=== PATIENT | female | born 1965 | race Caucasian/White ===

== ENCOUNTER 2019-07-21 13:41 | Observation (INO) | payer BC, OTHER ==
[2019-07-21] VITALS (9 sets, daily range): BP systolic 130–164; BP diastolic 70–87
[~2019-07-21] VITALS: Ht 162.5 cm; Wt 90.2 kg
[2019-07-21] MEDS ORDERED: ASPIRIN 81 MG CHEW (CHILDREN'S ASA) PO ONE (14:00)
[2019-07-21 14:20] LABS: BASOPHILS % (AUTO) 0 % (0-10); EOSINOPHILS % (AUTO) 0 % (0-10); HEMATOCRIT 39 % (35-52); HEMOGLOBIN 12.9 G/DL (11.5-16.0); LYMPHOCYTES % (AUTO) 10 % (12-44); MEAN CORPUSCULAR HEMOGLOBIN 30 PG (25-34); MEAN CORPUSCULAR HGB CONC 33 G/DL (32-36); MEAN CORPUSCULAR VOLUME 91 FL (80-99); MEAN PLATELET VOLUME 10.2 FL (7.4-10.4); MONOCYTES # (AUTO) 0.5 X 10^3 (0.0-1.0); MONOCYTES % (AUTO) 5 % (0-12); NEUTROPHILS # (AUTO) 8.5 X 10^3 (1.8-7.8); NEUTROPHILS % (AUTO) 85 % (42-75); PLATELET COUNT 234 10^3/uL (130-400); RED CELL DISTRIBUTION WIDTH 14.6 % (10.0-14.5)
--- NOTE | 2019-07-21 14:32 | Diagnostic Imaging Report ---
INDICATION: Chest pain. FINDINGS: The heart size is upper limits. There is no failure pattern or focal consolidation. No effusion or pneumothorax. IMPRESSION: No acute-appearing abnormality. Dictated by: Dictated on workstation # [id number]
[2019-07-21 14:42] LABS: INR 0.9 (0.8-1.4); PROTHROMBIN TIME PATIENT 12.8 SEC (12.2-14.7)
[2019-07-21 14:50] LABS: ALBUMIN 3.9 GM/DL (3.2-4.5); BILIRUBIN,TOTAL 0.7 MG/DL (0.1-1.0); CALCIUM 9.4 MG/DL (8.5-10.1); CREATININE SERUM 1.39 MG/DL (0.60-1.30); MAGNESIUM 1.6 MG/DL (1.6-2.4); POTASSIUM 3.8 MMOL/L (3.6-5.0); TOTAL PROTEIN 6.4 GM/DL (6.4-8.2)
--- NOTE | 2019-07-21 15:51 | Consultation-Cardiology ---
HPI-Cardiology Cardiology Consultation Date of Consultation 07/21/19 Date of Admission Time Seen by Provider: 15:47 Indication: Chest pain HPI 53-year-old lady with history of coronary artery disease multiple intervention in the past, hypertension hyperlipidemia and chronic kidney disease, history of kidney transplant. Was in her usual state of health until recently when she st arted to have recurrent episodes of chest pain described it as dull in nature in the retrosternal area and left side of her chest radiating up to her neck and arms. Seen in [facility] emergency room yesterday and she was planned to have a cardiac catheterization in [facility], patient expressed that she was told due to insurance coverage she cannot have it done in [place], she contacted my office this morning with a new episode of chest pain this morning again radiating to her neck and she was instructed to come to the emergency room. At this time she denied any active pain. No palpitation. No syncope. Home Medications & Allergies Allergies: Coded Allergies: NSAIDS (Non-Steroidal Anti-Inflamma (Unverified Allergy, Unknown, 07/21/19) hydromorphone (Verified Allergy, Unknown, 07/21/19) Home Medication List Reviewed: Yes AHH-Gwcaut-Xjbpei Hx Patient Social History Marital Status: Employed/Student: retired Recent Foreign Travel: No Recent Infectious Disease Expo: No Recent Hopitalizations: Yes Past Medical History Discussed below Family Medical History Family Medical Hx Noncontributory Review of Systems-General Review of Systems Constitutional: no symptoms reported, see HPI EENTM: see HPI, no symptoms reported Respiratory: see HPI; No cough, No dyspnea on exertion, No hemoptysis, No or thopnea, No phlegm, No short of breath, No stridor, No wheezing, No other Cardiovascular: see HPI, chest pain; No edema, No Hx of Intervention, No palpitations, No syncope, No vascular heart diseas, No other Gastrointestinal: no symptoms reported, see HPI Genitourinary: no symptoms reported, see HPI Musculoskeletal: no symptoms reported, see HPI Skin: no symptoms reported, see HPI Psychiatric/Neurological: No Symptoms Reported, See HPI Reviewed Test Results Reviewed Test Results Lab Laboratory Tests Test 07/21/19 14:13 Range/Units White Blood Count 10.0 4.3-11.0 10^3/uL Red Blood Count 4.31 L 4.35-5.85 10^6/uL Hemoglobin 12.9 11.5-16.0 G/DL Hematocrit 39 35-52 % Mean Corpuscular Volume 91 80-99 FL Mean Corpuscular Hemoglobin 30 25-34 PG Mean Corpuscular Hemoglobin Concent 33 32-36 G/DL Red Cell Distribution Width 14.6 H 10.0-14.5 % Platelet Count 234 130-400 10^3/uL Mean Platelet Volume 10.2 7.4-10.4 FL Neutrophils (%) (Auto) 85 H 42-75 % Lymphocytes (%) (Auto) 10 L 12-44 % Monocytes (%) (Auto) 5 0-12 % Eosinophils (%) (Auto) 0 0-10 % Basophils (%) (Auto) 0 0-10 % Neutrophils # (Auto) 8.5 H 1.8-7.8 X 10^3 Lymphocytes # (Auto) 1.0 1.0-4.0 X 10^3 Monocytes # (Auto) 0.5 0.0-1.0 X 10^3 Eosinophils # (Auto) 0.0 0.0-0.3 10^3/uL Basophils # (Auto) 0.0 0.0-0.1 10^3/uL Prothrombin Time 12.8 12.2-14.7 SEC INR Comment 0.9 0.8-1.4 Activated Partial Thromboplast Time 29 24-35 SEC Sodium Level 140 135-145 MMOL/L Potassium Level 3.8 3.6-5.0 MMOL/L Chloride Level 106 98-107 MMOL/L Carbon Dioxide Level 24 21-32 MMOL/L Anion Gap 10 5-14 MMOL/L Blood Urea Nitrogen 15 7-18 MG/DL Creatinine 1.39 H 0.60-1.30 MG/DL Estimat Glomerular Filtration Rate 40 BUN/Creatinine Ratio 11 Glucose Level 189 H 70-105 MG/DL Calcium Level 9.4 8.5-10.1 MG/DL Corrected Calcium 9.5 8.5-10.1 MG/DL Magnesium Level 1.6 1.6-2.4 MG/DL Total Bilirubin 0.7 0.1-1.0 MG/DL Aspartate Amino Transf (AST/SGOT) 16 5-34 U/L Alanine Aminotransferase (ALT/SGPT) 24 0-55 U/L Alkaline Phosphatase 104 40-136 U/L Myoglobin 96.5 H 10.0-92.0 NG/ML Troponin I < 0.028 <0.028 NG/ML Total Protein 6.4 6.4-8.2 GM/DL Albumin 3.9 3.2-4.5 GM/DL Physical Exam Physical Exam Vital Signs Vital Signs - First Documented Capillary Refill : Less Than 3 Seconds Height, Weight, BMI Height: '" Weight: lbs. oz. kg; 32.00 BMI Method: General Appearance: No Apparent Distress, WD/WN Eyes: Bilateral Eye Normal Inspection, Bilateral Eye PERRL, Bilateral Eye EOMI HEENT: PERRL/EOMI, TMs Normal, Normal ENT Inspection, Pharynx Normal, Moist Mucous Membranes Neck: Full Range of Motion, Normal Inspection, Non Tender, Supple, Carotid Bruit Respiratory: Chest Non Tender, Normal Breath Sounds, No Accessory Muscle Use, No Respiratory Distress Cardiovascular: Regular Rate, Rhythm, No Edema, No Gallop, No JVD, No Murmur, Normal Peripheral Pulses Gastrointestinal: Normal Bowel Sounds, No Organomegaly, No Pulsatile Mass, Non Tender, Soft Back: Normal Inspection, No CVA Tenderness, No Vertebral Tenderness Extremity: Normal Capillary Refill, Normal Inspection, Normal Range of Motion, Non Tender, No Calf Tenderness, No Pedal Edema Neurologic/Psychiatric: Alert, Oriented x3, No Motor/Sensory Deficits, Normal Mood/Affect Skin: Normal Color, Warm/Dry Lymphatic: No Adenopathy A/P-Cardiology Admission Diagnosis Unstable angina Coronary artery disease Chronic kidney disease Hypertension Assessment/Plan Unstable angina, accelerating angina, having multiple episodes of chest pain, EKG showed T-wave inversion in the anterolateral leads. Cardiac enzymes are negative. I am planning to proceed with cardiac catheterization possible PTCA. Coronary artery disease multiple interventions in the past, reporting history of 3 stents last stent was placed in 2017. Planning to repeat cardiac catheterization. Chronic kidney disease, history of kidney transplant done in 2004, mild renal insufficiency at this time. Starting IV fluid and monitor renal function. Hypertension, restart home medication and monitor blood pressure Hyperlipidemia, restart medication monitor lipids Diabetes mellitus, history of pancreatic insufficiency. GERD, managed by primary care physician History of bipolar disorder. Clinical Quality Measures AMI/AHF: ASA po Prior to arrival: NATHAN Wilcox MD Jul 21, 2019 15:51
--- NOTE | 2019-07-21 15:52 | ED Chest Pain ---
General Chief Complaint: Cardiac/General Problems Stated Complaint: CHEST PAIN Nursing Triage Note: PT STATES CHEST PAIN THIS MORNING AT 1000. CP WENT AWAY WITHOUT INTERVENTION. PATIENT STATED SHE WAS SUPPOSE TO HAVE A HEART CATH TODAY, BUT INS. WOULD NOT PAY FOR IT. PT STATES CONTACTED DR LOYD OFFICE AND WAS SENT HERE Nursing Sepsis Screen: No Definite Risk Source: patient Exam Limitations: no limitations History of Present Illness Date Seen by Provider: Jul 21, 2019 Time Seen by Provider: 13:57 Initial Comments This 53-year-old woman with known coronary artery disease and prior stenting presents to the emergency room with complaints of chest pain yesterday and then again this morning. Yesterday she experienced chest pain accompanied by nausea and sweating. She presented to the emergency room at [facility] in [place]. Workup was performed. The ER physician reportedly wanted to transfer the patient to Dr. Porter at [place] for heart catheter. However, patient states her insurance would not allow transfer to [place]. Patient ultimately was discharged home with instructions to follow-up with Dr. Hernandez in [place]. Patient attempted to present to the clinic today, but Dr. Hernandez was not in the clinic today. She was therefore referred to the emergency room. Patient reports yesterday her pain was alleviated with 2 nitroglycerin. She did not require nitroglycerin today. She did take her usual baby aspirin this morning. Patient has a complicated health history. She wears an insulin pump for treatment of her diabetes. She also has history of renal and pancreatic transplants. Allergies and Home Medications Allergies Coded Allergies: NSAIDS (Non-Steroidal Anti-Inflamma (Unverified Allergy, Unknown, 07/21/19) hydromorphone (Verified Allergy, Unknown, 07/21/19) Patient Home Medication List Home Medication List Reviewed: Yes Review of Systems Review of Systems Constitutional: see HPI EENTM: No Symptoms Reported Respiratory: No Symptoms Reported Cardiovascular: See HPI Gastrointestinal: See HPI Genitourinary: No Symptoms Reported Musculoskeletal: no symptoms reported Skin: no symptoms reported Psychiatric/Neurological: No Symptoms Reported Endocrine: No Symptoms Reported Hematologic/Lymphatic: No Symptoms Reported Past Nazaokf-Xpfssn-Hdmbwm Hx Past Med/Social Hx: Reviewed Nursing Past Med/Soc Hx Patient Social History Smoking Status: Former Smoker Recent Foreign Travel: No Contact w/Someone Who Travel: No Recent Infectious Disease Expo: No Recent Hopitalizations: Yes Past Medical History Surgeries: Yes (PANCREATIC TRANSPLANT) Coronary Stent, Kidney Transplant Respiratory: No Cardiac: Yes Angina, Heart Attack, Hypertension Neurological: No : No Genitourinary: No Gastrointestinal: No Musculoskeletal: No Endocrine: Yes Diabetes, Insulin dep (insulin pump) Psychosocial: No Integumentary: No Physical Exam Vital Signs Vital Signs - First Documented Capillary Refill : Less Than 3 Seconds Height, Weight, BMI Height: '" Weight: lbs. oz. kg; 32.00 BMI Method: General Appearance: No Apparent Distress, WD/WN HEENT: PERRL/EOMI, Normal ENT Inspection Neck: Normal Inspection Respiratory: Chest Non Tender, Lungs Clear, Normal Breath Sounds, No Accessory Muscle Use, No Respiratory Distress Cardiovascular: Regular Rate, Rhythm, No Edema, No Murmur, Normal Peripheral Pulses Gastrointestinal: Normal Bowel Sounds, Non Tender, Soft Extremity: Normal Inspection, Non Tender, No Calf Tenderness, No Pedal Edema Neurologic/Psychiatric: Alert, Oriented x3, No Motor/Sensory Deficits, Normal Mood/Affect, control panel tester II-XII Norm as Tested Skin: Normal Color, Warm/Dry Progress/Results/Core Measures Results/Orders Lab Results Laboratory Tests Test 07/21/19 14:13 Range/Units White Blood Count 10.0 4.3-11.0 10^3/uL Red Blood Count 4.31 L 4.35-5.85 10^6/uL Hemoglobin 12.9 11.5-16.0 G/DL Hematocrit 39 35-52 % Mean Corpuscular Volume 91 80-99 FL Mean Corpuscular Hemoglobin 30 25-34 PG Mean Corpuscular Hemoglobin Concent 33 32-36 G/DL Red Cell Distribution Width 14.6 H 10.0-14.5 % Platelet Count 234 130-400 10^3/uL Mean Platelet Volume 10.2 7.4-10.4 FL Neutrophils (%) (Auto) 85 H 42-75 % Lymphocytes (%) (Auto) 10 L 12-44 % Monocytes (%) (Auto) 5 0-12 % Eosinophils (%) (Auto) 0 0-10 % Basophils (%) (Auto) 0 0-10 % Neutrophils # (Auto) 8.5 H 1.8-7.8 X 10^3 Lymphocytes # (Auto) 1.0 1.0-4.0 X 10^3 Monocytes # (Auto) 0.5 0.0-1.0 X 10^3 Eosinophils # (Auto) 0.0 0.0-0.3 10^3/uL Basophils # (Auto) 0.0 0.0-0.1 10^3/uL Prothrombin Time 12.8 12.2-14.7 SEC INR Comment 0.9 0.8-1.4 Activated Partial Thromboplast Time 29 24-35 SEC Sodium Level 140 135-145 MMOL/L Potassium Level 3.8 3.6-5.0 MMOL/L Chloride Level 106 98-107 MMOL/L Carbon Dioxide Level 24 21-32 MMOL/L Anion Gap 10 5-14 MMOL/L Blood Urea Nitrogen 15 7-18 MG/DL Creatinine 1.39 H 0.60-1.30 MG/DL Estimat Glomerular Filtration Rate 40 BUN/Creatinine Ratio 11 Glucose Level 189 H 70-105 MG/DL Calcium Level 9.4 8.5-10.1 MG/DL Corrected Calcium 9.5 8.5-10.1 MG/DL Magnesium Level 1.6 1.6-2.4 MG/DL Total Bilirubin 0.7 0.1-1.0 MG/DL Aspartate Amino Transf (AST/SGOT) 16 5-34 U/L Alanine Aminotransferase (ALT/SGPT) 24 0-55 U/L Alkaline Phosphatase 104 40-136 U/L Myoglobin 96.5 H 10.0-92.0 NG/ML Troponin I < 0.028 <0.028 NG/ML Total Protein 6.4 6.4-8.2 GM/DL Albumin 3.9 3.2-4.5 GM/DL My Orders Orders - AIRAM LAROSE MD Cbc With Automated Diff (07/21/19 13:57) Magnesium (07/21/19 13:57) Chest 1 View, Ap/Pa Only (07/21/19 13:57) Ekg Tracing (07/21/19 13:57) Comprehensive Metabolic Panel (07/21/19 13:57) Myoglobin Serum (07/21/19 13:57) Protime With Inr (07/21/19 13:57) Partial Thromboplastin Time (07/21/19 13:57) O2 (07/21/19 13:57) Monitor-Rhythm Ecg Trace Only (07/21/19 13:57) Lipid Panel (07/22/19 06:00) Ed Iv/Invasive Line Start (07/21/19 13:57) Troponin I (07/21/19 13:57) Aspirin Chewable Tablet (Baby Aspirin Ch (07/21/19 14:00) Ekg Tracing (07/21/19 14:00) Medications Given in ED Current Medications Medications Dose Ordered Sig/[place] Route Start Time Stop Time Status Last Admin Dose Admin Aspirin 243 mg ONCE ONCE PO 07/21/19 14:00 07/21/19 14:01 DC 07/21/19 14:56 243 MG Vital Signs/I&O 07/21/19 07/21/19 13:51 13:51 Temp 36.8 Pulse 88 Resp 18 B/P (MAP) 164/79 (107) Pulse Ox 99 O2 Delivery Room Air Room Air Blood Pressure Mean: 107 Progress Progress Note : Time: 18:41 Progress Note Patient received the aspirin dosing and a cardiac workup. Workup was unremarkable except for some subtle EKG changes. Dr. Hernandez presented to the ER to visit with the patient. He would like to admit her to the hospital, hydrate her overnight, and perform a cardiac angiogram in the morning. Patient is agreeable to this and feels comfortable with this plan. EKG #1: EKG Time: 13:47 Rate: 80 Rhythm: Normal Sinus Intervals: Normal Comment Normal sinus rhythm with no ischemic ST elevation. There is T-wave inversion. LVH with possible secondary repolarization. Artifact present in lateral leads. EKG #2: EKG Time: 14:01 Rate: 78 Rhythm: Normal Sinus Intervals: Normal Comment Sinus rhythm with subtle ST changes including inversion. No definite no ischemic ST elevation. Probable LVH with secondary repolarization abnormality. No significant change from prior. Diagnostic Imaging Diagonstic Imaging: Xray Plain Films/CT/US/NM/MRI: chest Comments NAME: JOHNNA SANTO [facility] REC#: [id number] PT STATUS: REG ER : 1965 PHYSICIAN: AIRAM LAROSE MD ADMIT DATE: 07/21/19/ER Draft Date of Exam:07/21/19 CHEST 1 VIEW, AP/PA ONLY INDICATION: Chest pain. FINDINGS: The heart size is upper limits. There is no failure pattern or focal consolidation. No effusion or pneumothorax. IMPRESSION: No acute-appearing abnormality. Dictated on workstation # [id number] Dict: 07/21/19 1424 Trans: 07/21/19 1432 [id number] Interpreted by: ANALIA SMITH Departure Communication (Admissions) Time/Spoke to Admitting Phy: 15:40 Dr. Gonzales Time/Spoke to Consulting Phy: 15:10 Dr. Hernandez Impression Primary Impression: Chest pain Qualified Codes: R07.9 - Chest pain, unspecified Additional Impression: Coronary artery disease Qualified Codes: I25.10 - Atherosclerotic heart disease of solomon coronary artery without angina pectoris Disposition: ADMITTED INPATIENT Condition: Improved Admissions Decision to Admit Reason: Admit from ER (General) Decision to Admit/Date: Jul 21, 2019 Time/Decision to Admit Time: 15:10 Departure-Patient Inst. Referrals: SARATH PEDRO APRN (PCP) Primary Care Physician AIRAM LAROSE MD Jul 21, 2019 15:52
[2019-07-21] MEDS ORDERED: ONDANSETRON 4 MG/2 ML (SDV) Z0FRAN IV PRN (17:00)
[2019-07-21] MEDS ORDERED: CATHETER FLUSH 10 ML SYR IV PRN (17:00)
[2019-07-21] MEDS ORDERED: NITROGLYCERIN 0.4 MG SL TABS BTL 25'S SL PRN (17:00)
[2019-07-21] MEDS: NS IV 1000 ML 1,000 ML IV SCH (17:23)
[2019-07-21] MEDS ORDERED: VILA40TA PO (19:00)
[2019-07-21] MEDS ORDERED: CLON0.1T PO (19:00)
[2019-07-21] MEDS ORDERED: RT-ALBUINH IH (19:00)
[2019-07-21] MEDS ORDERED: CHOL500049 PO (19:00)
[2019-07-21] MEDS ORDERED: ZOLP5TAB PO (19:00)
[2019-07-21] MEDS ORDERED: PRED5TAB PO (19:00)
[2019-07-21] MEDS ORDERED: AMLO5TAB9 PO (19:00)
[2019-07-21] MEDS ORDERED: GLUC1KIT IJ (19:00)
[2019-07-21] MEDS ORDERED: CARI3CAP PO (19:00)
[2019-07-21] MEDS ORDERED: GABA-488 PO (19:00)
[2019-07-21] MEDS ORDERED: ASPI-999 PO (19:00)
[2019-07-21] MEDS ORDERED: LEVO100T7 PO (19:00)
[2019-07-21] MEDS ORDERED: TACR1CAP8 PO (19:00)
[2019-07-21] MEDS ORDERED: MYCO360T PO (19:00)
[2019-07-21] MEDS ORDERED: METO-352 PO (19:00)
[2019-07-21] MEDS ORDERED: LORAZ30SOL PO (19:00)
[2019-07-21] MEDS ORDERED: CALC600T12 PO (19:00)
[2019-07-21] MEDS ORDERED: INSU100V16 SQ (19:00)
[2019-07-21] MEDS ORDERED: FERR-84 PO (19:00)
[2019-07-21] MEDS ORDERED: ATOR40TA70 PO (19:00)
[2019-07-21] MEDS ORDERED: LORazepam ORAL CONCENTRATE 2 MG/ML 30 ML (ATIVAN) PO PRN (20:15)
[2019-07-21] MEDS ORDERED: ZOLPIDEM 5 MG (AMBIEN) TAB PO PRN (20:15)
[2019-07-21] MEDS ORDERED: TACROLIMUS 1 MG (PROGRAF) CAP NON-FORMULARY PO SCH (21:00)
[2019-07-21] MEDS ORDERED: MYCOPHENOLATE SODIUM 360 MG PO SCH (21:00)
[2019-07-21] MEDS: RT-ALBUTEROL SULF 2.5 MG/3 ML PRE-MIX VIAL IH SCH (22:09)
[2019-07-22] VITALS (7 sets, daily range): BP systolic 120–150; BP diastolic 72–84
[2019-07-22] MEDS: NS IV 1000 ML 1,000 ML IV SCH ×2 (03:30→12:12)
[2019-07-22 04:01] LABS: HEMOGLOBIN 12.5 G/DL (11.5-16.0); MEAN PLATELET VOLUME 10.2 FL (7.4-10.4); RED CELL DISTRIBUTION WIDTH 14.3 % (10.0-14.5); WHITE BLOOD COUNT 8.2 10^3/uL (4.3-11.0)
[2019-07-22] MEDS: GABAPENTIN 300 MG (NEURONTIN) CAP PO SCH ×2 (04:24→12:12)
[2019-07-22] MEDS: cloNIDine 0.1 MG (CATAPRES) TAB PO SCH ×2 (04:24→12:11)
[2019-07-22 04:25] LABS: ALANINE AMINOTRANSFERASE 25 U/L (0-55); ALBUMIN 3.5 GM/DL (3.2-4.5); ALKALINE PHOSPHATASE 93 U/L (40-136); BILIRUBIN,TOTAL 0.4 MG/DL (0.1-1.0); BUN/CREATININE RATIO 13; CALCIUM 8.8 MG/DL (8.5-10.1); CARBON DIOXIDE 21 MMOL/L (21-32); CHLORIDE 109 MMOL/L (98-107); CHOLESTEROL 136 MG/DL (< 200); CREATININE SERUM 1.19 MG/DL (0.60-1.30); GFR ESTIMATED 47; GLUCOSE 179 MG/DL (70-105); HDL CHOLESTEROL 58 MG/DL (40-60); POTASSIUM 3.3 MMOL/L (3.6-5.0); SODIUM 141 MMOL/L (135-145); TOTAL PROTEIN 5.8 GM/DL (6.4-8.2); TRIGLYCERIDES 92 MG/DL (<150); VLDL CHOLESTEROL 18 MG/DL (5-40)
[2019-07-22] MEDS ORDERED: LEVOTHYROXINE 100 MCG (LEVOTHROID) TAB PO SCH (06:30)
[2019-07-22] MEDS ORDERED: predniSONE 5 MG TAB PO SCH (07:00)
[2019-07-22] MEDS ORDERED: FERROUS SULF 325 MG (IRON) TAB PO SCH (08:00)
[2019-07-22] MEDS ORDERED: LIDOCAINE 1% INJ 20 ML 20 ML VIAL ONE (08:23)
[2019-07-22] MEDS ORDERED: MIDAZOLAM 5 MG/5 ML (VERSED) VIAL ONE (08:24)
[2019-07-22] MEDS ORDERED: fentaNYL INJECTION 100 MCG/2 ML AMP ONE (08:24)
[2019-07-22] MEDS ORDERED: HEParin (CATH LAB) 2,000 ML IV ONE (08:24)
--- NOTE | 2019-07-22 08:37 | Cardiology Progress Note ---
Subjective Date Seen by Provider: Jul 22, 2019 Time Seen by Provider: 08:35 Subjective/Events-last exam Patient is laying down in bed, denied any chest pain today. No palpitation. Review of Systems General: No Chills, No Night Sweats, No Fatigue, No Malaise, No Appetite, No Other HEENT: No Head Aches, No Visual Changes, No Eye Pain, No Ear Pain, No Dysphasia, No Sinus Congestion, No Post Nasal Drip, No Sore Throat, No Other Pulmonary: No Dyspnea, No Cough, No Pleuritic Chest Pain, No Other Cardiovascular: No: Chest Pain, Palpitations, Orthopnea, Paroxysmal Noc. Dyspnea, Edema, Lt Headedness, Other Objective-Cardiology Exam Last Set of Vital Signs Vital Signs 07/22/19 08:49 Pulse Ox 96 O2 Delivery Room Air Capillary Refill : Less Than 3 Seconds I&O Intake and Output 07/22/19 00:00 Intake Total 550 ml Output Total 275 ml Balance 275 ml Intake Oral 550 ml Output Urine Total 275 ml Daily Weight Change No No General: Alert, Oriented X3, Cooperative HEENT: Atraumatic, PERRLA Neck: Supple, No JVD, No Thyromegaly Lungs: Clear to Auscultation, Normal Air Movement Heart: Regular Rate, Normal S1, Normal S2, No Murmurs Abdomen: Normal Bowel Sounds, Soft, No Tenderness, No Hepatosplenomegaly, No Masses Extremities: No Clubbing, No Cyanosis, No Edema, Normal Pulses, No Tenderness/Swelling Skin: No Rashes, No Breakdown, No Significant Lesion Neuro: Normal Gait, Normal Speech, Strength at 5/5 X4 Ext, Normal Tone, Sensation Intact Psych/Mental Status: Mental Status NL, Mood NL Results Lab Laboratory Tests 07/21/19 14:13 07/22/19 03:54 A/P-Cardiology Admission Diagnosis Unstable angina Coronary artery disease Chronic kidney disease Hypertension Assessment/Plan Unstable angina, accelerating angina, having multiple episodes of chest pain, EKG showed T-wave inversion in the anterolateral leads. Cardiac enzymes are negative. I am planning to proceed with cardiac catheterization possible PTCA. Coronary artery disease multiple interventions in the past, reporting history of 3 stents last stent was placed in 2017. Discussed the procedure in length with the patient on present, all pros and cons were explained Chronic kidney disease, history of kidney transplant done in 2004, mild renal insufficiency at this time. Continue on IV fluid and monitor renal function Hypertension, monitor blood pressure Hyperlipidemia, monitor lipids Diabetes mellitus, history of pancreatic insufficiency. GERD, managed by primary care physician History of bipolar disorder. Addendum Patient underwent cardiac catheterization, findings discussed below, planning to discharge home, give 1 dose of Lasix 1. Heavily calcified coronary system with patent 3 stents in the circumflex artery, mild disease in the LAD and right coronary artery nonobstructive disease 2. Normal left ventricular size and systolic function estimated ejection fraction 65 percent, elevated left ventricular end diastolic pressure probably due to diastolic dysfunction Clinical Quality Measures AMI/AHF: ASA po Prior to arrival: No DVT/VTE Risk/Contraindication: Risk Factor Score Per Nursin RFS Level Per Nursing on Admit: 4+=Very High NATHAN BLAIR MD Jul 22, 2019 08:37
--- NOTE | 2019-07-22 08:38 | Cardiac Procedure Note-CS/ASA ---
Pre-Procedure Note Pre-Op Procedure Note H&P Reviewed The H&P was reviewed, patient examined and no changes noted. Date H&P Reviewed: Jul 22, 2019 Time H&P Reviewed: 08:37 Conscious Sedation Pre-Proced Time 08:37 ASA Score 3 For ASA 3 and 4: Consider anesthesia and medical clearance. Also, for patients with a history of failed moderate sedation consider anesthesia. Airway Lungs Heart ASA score ASA 1: a normal healthy patient ASA 2: a patient with a mild systemic disease (mid diabetes, controlled hypertension, obesity X ASA 3: a patient with a severe systemic disease that limits activity (angina, COPD, prior Myocardial infarction) ASA 4: a patient with an incapacitating disease that is a constant threat to life (CHF, renal failure) ASA 5: a moribund patient not expected to survive 24 hrs. (ruptured aneurysm) ASA 6: a declared brain- patient whose organs are being harvested. For emergent operations, add the letter E after the classification Mallampati Classification Grade 3 Sedation Plan Analgesia, Amnesia, Plan communicated to team members, Discussed options with patient/fam, Discussed risks with patient/fam The patient is an appropriate candidate to undergo the planned procedure, sedation, and anesthesia. The patient immediately re-assessed prior to indication. NATHAN BLAIR MD Jul 22, 2019 08:38
--- NOTE | 2019-07-22 08:45 | NUR ---
Pt taken to clinical lab specialist at this time by staff. Will await pt return.
[2019-07-22] MEDS ORDERED: meTOproloL SUCCINATE 50 MG (TOPROL XL) TAB PO SCH (09:00)
[2019-07-22] MEDS ORDERED: ASPIRIN E.C. 81 MG (ECOTRIN) TAB PO SCH (09:00)
[2019-07-22] MEDS ORDERED: VILAZODONE 40 MG (VIIBRYD) TABLET (NON-FORMULARY) PO SCH (09:00)
[2019-07-22] MEDS ORDERED: ASPIRIN 81 MG CHEW (CHILDREN'S ASA) PO SCH (09:00)
[2019-07-22] MEDS ORDERED: amLODIPine 5 MG (NORVASC) TAB PO SCH (09:00)
[2019-07-22] MEDS ORDERED: NON-FORMULARY MEDICATION 1 EA EA (Cariprazine Hydrochloride (Vraylar) 3 MG) PO SCH (09:00)
[2019-07-22] MEDS: RT-ALBUTEROL SULF 2.5 MG/3 ML PRE-MIX VIAL IH SCH (09:08)
[2019-07-22] MEDS ORDERED: meTOprolol 5 MG/5 ML (LOPRESSOR) VIAL ONE (09:38)
[2019-07-22] MEDS ORDERED: PATIENT MAY USE OWN MEDS, ALL PO SCH (09:45)
[2019-07-22] MEDS ORDERED: NS IV 1000 ML 1,000 ML IV SCH (09:45)
--- NOTE | 2019-07-22 09:52 | Cardiac Cath Report ---
Cardiac Cath Report Physician (s)/Interventional Technologist (s) Physician NATHAN BLAIR MD Pre-Procedure Diagnosis Pre-Procedure Diagnosis: Coronary artery disease Post-Procedure Note Procedure Start Date: Jul 22, 2019 Name of Procedure: Left heart catheterization Findings/Procedure Note PROCEDURE NOTE: 53-year-old lady with history of coronary artery disease multiple intervention the past, admitted with unstable angina, scheduled for cardiac catheterization possible PTCA. After explaining the procedure to the patient, all pros and cons were explained, all questions were answered. The patient signed the consent and then she was placed on the cardiac catheterization laboratory. Groin was prepped SL fashion local anesthesia was used. Sheath placed in the right femoral artery. Sienna right and left catheter were used to access the coronary system. Pigtail was used to access the left ventricular cavity. Left ventriculogram was done At the end of the procedure the sheath was removed. Closure device was used FINDINGS: Hemodynamics LV 146/15 end-diastolic pressure of 30 Aorta 155/90 mean of 117 ANATOMY: Left Main is free of obstructive disease Left Anterior Descending has heavy calcification at the proximal and midportion, 40 percent stenosis at the mid LAD, diagonal artery is a small artery with moderate stenosis Left Circumflex has 3 stents that are patent extending in the second obtuse marginal branch, the first obtuse marginal branch is a very small artery Right Coronory Artery is calcified artery with mild disease nonobstructive disease LV Gram was done in the right anterior oblique position, left ventricular is normal in size with ejection fraction 60 percent CONCLUSION: 1. Heavily calcified coronary system with patent 3 stents in the circumflex artery, mild disease in the LAD and right coronary artery nonobstructive disease 2. Normal left ventricular size and systolic function estimated ejection fraction 65 percent, elevated left ventricular end diastolic pressure probably due to diastolic dysfunction DISCUSSION AND RECOMMENDATION: No intervention is warranted. Will give one dose of Lasix. Restart home medication and arrange for follow-up with Dr. Weston Anesthesia Type: Conscious Sedation Estimated blood loss (mL): 15 ml Contrast Amount: 30 ml Total Radiation Dose: 401 mGy Post-Procedure Diagnosis Post-operative diagnosis: Chest pain Coronary artery disease Hypertension Hyperlipidemia NATHAN BLAIR MD Jul 22, 2019 09:52
[2019-07-22] MEDS ORDERED: FUROSEMIDE 40 MG/4 ML INJ (LASIX) IVP NR (12:15)
--- NOTE | 2019-07-22 14:45 | NUR ---
Discharge instructions given to pt at this time. Right groin site remains clean dry et intact upon discharge. IV removed. Personal belongings with pt at time of discharge. Pt taken via wheelchair to private car.
== END 2019-07-22 14:45 | disposition home or self-care (01) ==
LOC: ER 13:41 → CSD 15:44
PROVIDERS: ADMIT Internal Medicine; ATTEND Internal Medicine
DX: I25.10 Atherosclerotic heart disease of native coronary artery without angina pectoris (principal); I10 Essential (primary) hypertension; E78.5 Hyperlipidemia, unspecified; Z88.6 Allergy status to analgesic agent; Z95.5 Presence of coronary angioplasty implant and graft; Z94.0 Kidney transplant status; Z87.891 Personal history of nicotine dependence; E11.9 Type 2 diabetes mellitus without complications; Z79.4 Long term (current) use of insulin; Z96.41 Presence of insulin pump (external) (internal)
CPT/HCPCS: 36415; 71045; 80053; 80061; 83735; 83874; 84443; 84484; 85025; 85027; 85610; 85730; 93005; 93041; 93458; 94640

== ENCOUNTER → 2021-09-25 | Outpatient (CLI) | payer MEDICARE, OTHER ==
[~2021-09-25] MED LIST: AMLO-250 PO; ASPI-999 PO; ATOR40TA70 PO; CALC600T91 PO; CARI3CAP PO; CHOL500049 PO; CLN.1T PO; FERR-84 PO; GABA-488 PO; GLUC1KIT IJ; INSU100V16 SQ; LEVO100T7 PO; LORAZ30SOL PO; METO-352 PO; MYCO360T PO; PRED5TAB PO; RT-ALBUINH IH; TACR1CAP8 PO; VILA40TA PO; ZOLP5TAB PO
== END ==
LOC: CARD 13:00
PROVIDERS: ATTEND Internal Medicine Cardiovascular Disease
DX: I11.9 Hypertensive heart disease without heart failure (principal)
CPT/HCPCS: 93306

== ENCOUNTER → 2021-10-13 | Outpatient (CLI) | payer MEDICARE, OTHER ==
[~2021-10-13] MED LIST changes: +CATHETER FLUSH 10 ML SYR IVP PRN; +REGADENOSON 0.4 MG/5 ML SYR (LEXISCAN) IV ONE
[2021-10-13 09:20] VITALS: BP 146/66
--- NOTE | 2021-10-13 11:12 | Cardiology Stress Test Report ---
Stress Test Report Date of Procedure/Referring: Date of Procedure: October 13, 2021 PCP Nathan Hernandez MD Admitting Physician Graciela Bower Aprn Indications: cp Baseline Heart Rate: 78 Baseline Blood Pressure: Blood Pressure Systolic: 146 Blood Pressure Diastolic: 66 Baseline Vitals Vital Signs Date Time Temp Pulse Resp B/P (MAP) Pulse Ox O2 Delivery O2 Flow Rate FiO2 10/13/21 09:20 78 146/66 (92) 99 Baseline EKG: Baseline EKG: NSR Summary After explaining the procedure to the patient, she signed a consent and then brought to the stress nuclear laboratory. Patient received 0.4 mg Lexiscan for stress test, ECG, heart rate and blood pressure were monitored continuously. Resting and stress dose of radio tracer were injected, imaging was acquired and reviewed in short axis, horizontal long axis and vertical long axis views. TID: 1.19 SSS: 8 SDS: 5 EF: 75 1. Patient tolerated Lexiscan well 2. Breast attenuation with reversible ischemia involving the mid to apical anterior wall and anterolateral wall 3. Normal left ventricular size, EF 75% Copy Copies To 1: [facility] [place] NATHAN HERNANDEZ MD October 13, 2021 11:12
== END ==
LOC: CARD 08:00
PROVIDERS: ATTEND Internal Medicine Cardiovascular Disease
DX: I25.10 Atherosclerotic heart disease of native coronary artery without angina pectoris (principal); I10 Essential (primary) hypertension
CPT/HCPCS: 78452; 93017; A9502

== ENCOUNTER 2021-10-22 10:00 | Day surgery (SDC) | payer MEDICARE, OTHER ==
[2021-10-22] VITALS (11 sets, daily range): BP systolic 125–151; BP diastolic 58–73
[~2021-10-22] VITALS: Ht 162.6 cm; Wt 87.0 kg
--- NOTE | 2021-10-22 08:23 | Diagnostic Imaging Report ---
INDICATION: DYSPNEA. TECHNIQUE: Single view chest 8:09 AM. CORRELATION STUDY: 05/20/2020 FINDINGS: Heart size remains upper limits of normal but stable. Vasculature within normal limits. The lungs are clear with no consolidating infiltrate. There is no significant effusion or pneumothorax. IMPRESSION: 1. Negative appearing single view chest. Dictated by: Dictated on workstation # [id number]
[2021-10-22 08:30] LABS: HEMATOCRIT 39 % (35-52); HEMOGLOBIN 12.9 g/dL (11.5-16.0); MEAN CORPUSCULAR HEMOGLOBIN 31 pg (25-34); MEAN CORPUSCULAR HGB CONC 33 g/dL (32-36); MEAN CORPUSCULAR VOLUME 95 fL (80-99); MEAN PLATELET VOLUME 10.2 fL (9.0-12.2); PLATELET COUNT 233 10^3/uL (130-400); WHITE BLOOD COUNT 8.7 10^3/uL (4.3-11.0)
[2021-10-22 08:31] LABS: BILIRUBIN,URINE NEGATIVE (NEGATIVE); CLARITY,URINE CLEAR; COLOR,URINE YELLOW; GLUCOSE, URINE (UA) NEGATIVE (NEGATIVE); KETONES,URINE NEGATIVE (NEGATIVE); LEUKOCYTE ESTERASE ,URINE NEGATIVE (NEGATIVE); NITRITE,URINE NEGATIVE (NEGATIVE); PH,URINE 5.5 (5-9); PROTEIN,URINE NEGATIVE (NEGATIVE)
[2021-10-22 08:41] LABS: INR 0.9 (0.8-1.4); PROTHROMBIN TIME PATIENT 12.7 SEC (12.2-14.7)
[2021-10-22 08:50] LABS: BILIRUBIN,TOTAL 0.7 MG/DL (0.1-1.0); CALCIUM 9.5 MG/DL (8.5-10.1); CREATININE SERUM 1.22 MG/DL (0.60-1.30); POTASSIUM 3.6 MMOL/L (3.6-5.0); TOTAL PROTEIN 6.6 GM/DL (6.4-8.2)
[2021-10-22 08:57] LABS: AMORPHOUS SEDIMENT,UR FEW AMOR URATES /LPF; BACTERIA,URINE TRACE /HPF; RBC,URINE 0-2 /HPF; SQUAMOUS EPITHELIAL CELL,UR 0-2 /HPF
[2021-10-22 08:58] LABS: HYALINE CASTS, URINE 0-2 /LPF
[~2021-10-22 10:00] MED LIST changes: +ACYC400T21 PO; +AMLO-251 PO; -CATHETER FLUSH 10 ML SYR IVP PRN; +HEParin (CATH LAB) 2,000 ML IV ONE; +HEParin 1000 UNIT/ML (10ML VIAL) FOR BOLUS ONE; +LEVO75CA5 PO; +LIDOCAINE 1% INJ 20 ML VIAL ONE; +LOSA50TA63 PO; +MELA1TAB27 PO; +MIDAZOLAM 5 MG/5 ML (VERSED) VIAL ONE; +MTP100TCR PO; +NITRO DRIP 25000 MCG/D5W 250 ML IV ONE; +NS IV 1000 ML 1,000 ML IV SCH; +NS IV 1000 ML 1,000 ML ONE; -REGADENOSON 0.4 MG/5 ML SYR (LEXISCAN) IV ONE; +VENL-48 PO; +VERAPAMIL 5 MG/2 ML (CALAN) VIAL IV ONE; +fentaNYL INJ 100 MCG/2 ML AMP ONE
--- NOTE | 2021-10-22 10:02 | Conscious Sedation/ASA ---
Conscious Sedation Pre-Proced Time 10:01 ASA Score 3 For ASA 3 and 4: Consider anesthesia and medical clearance. Also, for patients with a history of failed moderate sedation consider anesthesia. Airway Lungs Heart ASA score ASA 1: a normal healthy patient ASA 2: a patient with a mild systemic disease (mid diabetes, controlled hypertension, obesity x ASA 3: a patient with a severe systemic disease that limits activity (angina, COPD, prior Myocardial infarction) ASA 4: a patient with an incapacitating disease that is a constant threat to life (CHF, renal failure) ASA 5: a moribund patient not expected to survive 24 hrs. (ruptured aneurysm) ASA 6: a declared brain- patient whose organs are being harvested. For emergent operations, add the letter E after the classification Mallampati Classification Grade 3 Sedation Plan Analgesia, Amnesia, Plan communicated to team members, Discussed options with patient/fam, Discussed risks with patient/fam The patient is an appropriate candidate to undergo the planned procedure, sedation, and anesthesia. The patient immediately re-assessed prior to indication. NATHAN BLAIR MD October 22, 2021 10:02
--- NOTE | 2021-10-22 10:41 | Discharge Inst-Post CATH ---
Discharge Inst-CATH/EP Problems Reviewed?: Yes Post Cardiac Cath/EP D/C Inst Follow Up/Plan Appointment with Dr. Hernandez's office in 2 to 4 weeks <b>CARDIAC CATH/EP PROCEDURE DISCHARGE INSTRUCTIONS</b> ACTIVITY * Go Home directly and rest. * Limit activity of the leg (or wrist if it was used) for 7 days including aer obics, swimming, jogging, bicycling, etc. * Restrict stair-climbing for 7 days if possible, if not, climb up with your non-cath leg, then bring together on the same step. * Avoid lifting, pushing, pulling or excessive movement of the affected extremi ty for 7 days. * Customary sexual activity may be resumed after 2 days-use caution not to use a position that strains or causes pain to the affected extremity. * No driving for 24 hours. * NO SMOKING. * Avoid straining for bowel movements for 7 days. * Gentle walking on level ground is allowed. * Returning to work will depend on the type of procedure and the results. Your doctor will discuss this with you. CALL YOUR DOCTOR FOR ANY OF THE FOLLOWING: *If bleeding from the puncture site occurs- Apply gentle pressure to site with clean cloth and call your doctor or EMS. * If a knot or lump forms under the skin, increases in size, or causes pain. * If bruising appears to be worsening or moving further down your leg instead of disappearing. * Temperature above 101 F. CARE OF YOUR GROIN INCISION; * Bruising or purple discoloration of the skin near the puncture site is common. * You may shower only, no bathtub bathing for 5 days. Be careful to avoid slipping as your leg may feel stiff. * If a closure device was used on your femoral artery, please see the attached guide regarding care of the device and your leg. * Leave dressing on FOR 24 hours. CARE OF YOUR WRIST INCISION; * Bruising or purple discoloration of the skin near the puncture site is common. * You may shower. * DO NOT submerge wrist. * Leave dressing on FOR 24 hours. NATHAN HERNANDEZ MD October 22, 2021 10:41
[2021-10-22] MEDS ORDERED: NS IV 1000 ML 1,000 ML IV SCH (10:45)
[2021-10-22] MEDS ORDERED: PATIENT MAY USE OWN MEDS, ALL PO SCH (10:45)
--- NOTE | 2021-10-22 10:51 | Cardiac Cath Report ---
Cardiac Cath Report Physician (s)/In Shop Service Technician (s) Physician NATHAN BLAIR MD Pre-Procedure Diagnosis Pre-Procedure Diagnosis: Coronary artery disease Post-Procedure Note Procedure Start Date: October 22, 2021 Name of Procedure: Left heart catheterization Selective bilateral renal angiogram Findings/Procedure Note PROCEDURE NOTE: After explaining the procedure to the patient, all pros and cons were explained, all questions were answered. The patient signed the consent and then she was placed on the cardiac catheterization laboratory. Groin was prepped SL fashion local anesthesia was used. I was able to access the right radial artery, the sheath would not advance in the right radial artery, subsequently I removed the sheath and the wire and use the wrist band to control the bleeding. Then prepped the right groin sheath placed in the right radial artery. Sienna right and left catheter were used to access the coronary system. Sienna right was prolapsed to the left ventricular cavity, pressure was measured no left ventriculogram was done. I pulled the catheter down and did selective angiogram to the left renal artery then turned the catheter to the right and did selective renal angiogram to the right renal artery. At the end of the procedure the sheath was removed. Closure device was deployed FINDINGS: Hemodynamics LV 138/38, end-diastolic pressure of 38 Aorta 131/61 mean of 89 ANATOMY: Left Main is free of obstructive disease Left Anterior Descending is calcified with mild to moderate disease non obstructive disease Left Circumflex has patent stent in the proximal and mid circumflex artery, mild disease distally nonobstructive disease Right Coronary Artery has mild to moderate disease nonobstructive disease LV Gram was not done, pressure was measured Selective left renal artery angiogram showed very small renal artery, nonobstructive disease less than 1 mm Selective right renal artery angiogram showed very small renal artery, nonobstructive disease CONCLUSION: 1. Probably very small right radial artery, I was unable to advance a 6 Moroc[place] sheath in the radial artery 2. Very small bilateral renal arteries, less than 1 mm in diameter, with nonobstructive disease 3. Patent stent in the proximal and mid circumflex artery 4. Calcified LAD with mild to moderate disease, nonobstructive disease, mild to moderate disease in the right coronary artery 5. Hypertensive heart disease with elevated left ventricular end-diastolic pressure DISCUSSION AND RECOMMENDATION: Continue to maximize medical therapy Anesthesia Type: Conscious Sedation Estimated blood loss (mL): 25 ml Contrast Amount: 30 ml Total Radiation Dose: 463 mGy Post-Procedure Diagnosis Post-operative diagnosis: Coronary artery disease Resistant hypertension Hyperlipidemia Hypertensive heart disease NATHAN BLAIR MD October 22, 2021 10:51
== END 2021-10-22 15:30 | disposition home or self-care (01) ==
LOC: CATH 10:00 → SDC 11:03 → CATH 15:30
PROVIDERS: ATTEND Internal Medicine Cardiovascular Disease
DX: I25.118 Atherosclerotic heart disease of native coronary artery with other forms of angina pectoris (principal); I13.10 Hypertensive heart and chronic kidney disease without heart failure, with stage 1 through stage 4 chronic kidney disease, or unspecified chronic kidney disease; I65.23 Occlusion and stenosis of bilateral carotid arteries; E78.2 Mixed hyperlipidemia; E11.22 Type 2 diabetes mellitus with diabetic chronic kidney disease; N18.9 Chronic kidney disease, unspecified; K21.9 Gastro-esophageal reflux disease without esophagitis; F31.9 Bipolar disorder, unspecified; Z87.891 Personal history of nicotine dependence; Z95.5 Presence of coronary angioplasty implant and graft; Z94.0 Kidney transplant status; Z79.899 Other long term (current) drug therapy; Z79.4 Long term (current) use of insulin
CPT/HCPCS: 36252; 71045; 80053; 80061; 81000; 85027; 85610; 85730; 87081; 93005; 93458; C1760; C1894 ×2; 36415

== ENCOUNTER 2021-10-22 16:23 | Emergency (ER) | payer MEDICARE, OTHER ==
[~2021-10-22 16:23] MED LIST changes: -HEParin (CATH LAB) 2,000 ML IV ONE; -HEParin 1000 UNIT/ML (10ML VIAL) FOR BOLUS ONE; -LIDOCAINE 1% INJ 20 ML VIAL ONE; -MIDAZOLAM 5 MG/5 ML (VERSED) VIAL ONE; -NITRO DRIP 25000 MCG/D5W 250 ML IV ONE; -NS IV 1000 ML 1,000 ML IV SCH; -NS IV 1000 ML 1,000 ML ONE; -VERAPAMIL 5 MG/2 ML (CALAN) VIAL IV ONE; -fentaNYL INJ 100 MCG/2 ML AMP ONE
--- NOTE | 2021-10-22 17:07 | ED General ---
General Chief Complaint: Post OP Complications/Pain Stated Complaint: POST OP Nursing Triage Note: PT AMB TO RM 3 FROM BEING D/C'D FROM HEART CATH WITH C/O BLEEDING TO R WRIST PUNCTURE SITE Allergies and Home Medications Allergies Coded Allergies: Macrolide Antibiotics (Verified Allergy, Unknown, 10/22/21) UNABLE TO HAVE DUE TO PANCREAS TRANSPLANT NSAIDS (Non-Steroidal Anti-Inflamma (Unverified Allergy, Unknown, 07/21/19) hydromorphone (Verified Allergy, Unknown, 07/21/19) Patient Home Medication List Acyclovir (Acyclovir) 400 Mg Tablet, 200 MG PO TID, (Reported) Entered as Reported by: VLADIMIR BABIN on 10/22/21 0845 Albuterol Sulfate (Proair Hfa) 1 Puff Puff, 2 PUFF IH BID, (Reported) Entered as Reported by: LUIS CALIX on 07/21/191899 Amlodipine Besylate (Amlodipine Besylate) 10 Mg Tablet, 10 MG PO DAILY, (Reported) Entered as Reported by: VLADIMIR BABIN on 10/22/21 0845 Aspirin (Aspirin) 81 Mg Tab.chew, 81 MG PO DAILY, (Reported) Entered as Reported by: LUIS CALIX on 07/21/191899 Atorvastatin Calcium (Atorvastatin Calcium) 40 Mg Tablet, 40 MG PO DAILY, (R eported) Entered as Reported by: LUIS CALIX on 07/21/191899 Calcium Carbonate (Calcium) 600 Mg Tablet, 1,200 MG PO DAILY, (Reported) Entered as Reported by: LUIS CALIX on 07/21/191899 Cariprazine Hydrochloride (Vraylar) 3 Mg Capsule, 3 MG PO DAILY, (Reported) Entered as Reported by: LUIS CALIX on 07/21/191899 Cholecalciferol (Vitamin D3) (Vitamin D) 50,000 Unit Capsule, 50,000 UNIT PO UD, (Reported) Entered as Reported by: LUIS CALIX on 07/21/191899 Clonidine HCl (Clonidine HCl) 0.1 Mg Tablet, 0.2 MG PO TID, (Reported) Entered as Reported by: LUIS CALIX on 07/21/191899 Ferrous Sulfate (Iron) 325 Mg Tablet, 324 MG PO DAILY, (Reported) Entered as Reported by: LUIS CALIX on 07/21/191899 Gabapentin (Gabapentin) 300 Mg Capsule, 300 MG PO TID, (Reported) Entered as Reported by: LUIS CALIX on 07/21/191899 Glucagon,Human Recombinant (Glucagon Emergency Kit) 1 Mg/Kit Soln, 1 MG IJ PRN, (Reported) Entered as Reported by: LUIS CALIX on 07/21/191899 Insulin Aspart (Novolog) 100 Unit/1 Ml Susp, 0 SQ UD, (Reported) Entered as Reported by: LUIS CALIX on 07/21/191899 Levothyroxine Sodium (Levothyroxine) 75 Mcg Capsule, 75 MCG PO DAILY, (Reported) Entered as Reported by: VLADIMIR BABIN on 10/22/21844 Lorazepam (Lorazepam) 2 Mg/1 Ml Oral.conc, 0.5 MG PO BID PRN for ANXIETY, (Reported) Entered as Reported by: LUIS CALIX on 07/21/191899 Losartan Potassium (Losartan Potassium) 50 Mg Tablet, 50 MG PO BID, (Reported) Entered as Reported by: VLADIMIR BABIN on 10/22/21844 Melatonin/Pyridoxine HCl (B6) (Melatonin 3 mg Tablet) 3 Mg-10 Mg Tablet, 1 EACH PO HS, (Reported) Entered as Reported by: VLADIMIR BABIN on 10/22/21844 Metoprolol Succinate (Metoprolol Succinate) 100 Mg Tab.er.24h, 100 MG PO DAILY, (Reported) Entered as Reported by: VLADIMIR BABIN on 10/22/21844 Mycophenolate Sodium (Myfortic) 360 Mg Tablet.dr, 360 MG PO BID, (Reported) Entered as Reported by: LUIS CALIX on 07/21/191899 Prednisone (Prednisone) 5 Mg Tablet, 5 MG PO DAILY, (Reported) Entered as Reported by: LUIS CALIX on 07/21/191899 Tacrolimus (Tacrolimus) 1 Mg Capsule, 1 MG PO BID, (Reported) Entered as Reported by: LUIS CALIX on 07/21/191899 Venlafaxine HCl (Venlafaxine HCl ER) 37.5 Mg Cap.er.24h, 37.5 MG PO DAILY, (Reported) Entered as Reported by: VLADIMIR BABIN on 10/22/21 0845 Vilazodone Hydrochloride (Viibryd) 40 Mg Tablet, 40 MG PO DAILY, (Reported) Entered as Reported by: LUIS CALIX on 07/21/191899 Discontinued Medications Amlodipine Besylate (Amlodipine Besylate) 5 Mg Tablet, 5 MG PO DAILY, (Reported) Discontinued Reason: Duplicate Order Entered as Reported by: LUIS CALIX on 07/21/191899 Levothyroxine Sodium (Levothyroxine Sodium) 100 Mcg Tablet, 100 MCG PO DAILY, (Reported) Discontinued Reason: Duplicate Order Entered as Reported by: LUIS CALIX on 07/21/191899 Metoprolol Succinate (Toprol Xl) 50 Mg Tab.er.24h, 50 MG PO DAILY, (Reported) Discontinued Reason: Duplicate Order Entered as Reported by: LUIS CALIX on 07/21/191899 Zolpidem Tartrate (Ambien) 5 Mg Tablet, 5 MG PO HS PRN for SLEEP, (Reported) Discontinued Reason: No Longer Taking Entered as Reported by: LUIS CALIX on 07/21/191899 Past Qhtptal-Ozkaqb-Zkmsob Hx Past Medical History Surgeries: Yes (PANCREATIC TRANSPLANT) Coronary Stent, Kidney Transplant, Orthopedic, Pancreatic Respiratory: No Sleep Apnea, COPD Currently Using CPAP: Yes (NOT CURRENTLY USING) Cardiac: Yes Angina, Coronary Artery Disease, Heart Attack, Hypertension Neurological: No Neuropathy Genitourinary: No Gastrointestinal: No Gastroesophageal Reflux Musculoskeletal: No Endocrine: Yes Diabetes, Insulin dep Psychosocial: No Integumentary: No Physical Exam Vital Signs Vital Signs - First Documented 10/22/21 16:38 Temp 36.9 Pulse 88 Resp 16 B/P (MAP) 161/74 (103) Capillary Refill : Height, Weight, BMI Height: '" Weight: lbs. oz. kg; 32.90 BMI Method: Progress/Results/Core Measures Suspected Sepsis SIRS Temperature: Pulse: 88 Respiratory Rate: 16 Blood Pressure 161 /74 Mean: 103 Results/Orders Vital Signs/I&O 10/22/21 16:38 Temp 36.9 Pulse 88 Resp 16 B/P (MAP) 161/74 (103) Capillary Refill : Blood Pressure Mean: 103 Departure Impression Primary Impression: Encounter for postoperative wound check Disposition: 01 HOME, SELF-CARE Condition: Improved Departure-Patient Inst. Decision time for Depature: 17:05 Referrals: SARATH PEDRO APRN (PCP) Primary Care Physician Patient Instructions: Cardiac Catheterization (DC) Add. Discharge Instructions: Continue to monitor incision sites, if you notice any excessive bleeding or saturation of the cotton pad hold direct pressure and you can go to your local ER if you are unable to stop the bleeding. If you develop any swelling or bruising and pain please follow-up with your local ER. Return to the ER for any new concerning, worsening symptoms. YESSI POE CREDIT ADMINISTRATOR October 22, 2021 17:07
[2021-10-22 17:16] VITALS: BP 161/74
== END 2021-10-22 17:19 | disposition home or self-care (01) ==
LOC: EDUNIT# 16:23 → ER 16:25
DX: T82.838A Hemorrhage due to vascular prosthetic devices, implants and grafts, initial encounter (principal); G47.30 Sleep apnea, unspecified; E11.9 Type 2 diabetes mellitus without complications; Z99.89 Dependence on other enabling machines and devices; Z79.4 Long term (current) use of insulin; Z95.5 Presence of coronary angioplasty implant and graft
CPT/HCPCS: 99281